=== PATIENT | male | born 1985 | race Caucasian/White ===

== ENCOUNTER 2016-06-06 09:42 | Emergency (ER) | payer MEDICAID, OTHER ==
[2016-06-06 09:51] VITALS: BP 131/80
[2016-06-06] MEDS ORDERED: IBUPROFEN 600 MG TABLET PO ONE (09:54)
[2016-06-06] MEDS ORDERED: ACETAMINOPHEN 325 MG TABLET PO ONE (09:57)
--- NOTE | 2016-06-06 10:56 | ER Document Report ---
ED Hand/Wrist Injury - General Chief Complaint: Wrist Injury Stated Complaint: WRIST PAIN Notes: The patient is a 30-year-old male who presents with left wrist pain after he fell yesterday. He is having pain over his left lateral wrist, especially when he flexes the wrist. He had a navicular fracture 15 years ago that was repaired with a screw. He cannot take anti-inflammatories because he has a history of gastric ulcers. He denies numbness, tingling, open wounds or decreased range of motion. TRAVEL OUTSIDE OF THE U.S. IN LAST 30 DAYS: No - Related Data Allergies/Adverse Reactions: shellfish derived Allergy (Verified 06/06/16 09:48) Sulfa (Sulfonamide Antibiotics) Adverse Reaction (Verified 06/06/16 09:48) Past Medical History - General Information source: Patient - Social History Smoking Status: Current Every Day Smoker Frequency of alcohol use: Occasional Drug Abuse: None Family History: Reviewed & Not Pertinent Patient has suicidal ideation: No Patient has homicidal ideation: No Renal/ Medical History: Denies: Hx Peritoneal Dialysis Review of Systems - Review of Systems Notes: REVIEW OF SYSTEMS: CONSTITUTIONAL: -fevers, -chills EENT: -eye pain, -difficulty swallowing, -nasal congestion CARDIOVASCULAR:-chest pain, -syncope. RESPIRATORY: -cough, -SOB GASTROINTESTINAL: -abdominal pain, - nausea, -vomiting, -diarrhea GENITOURINARY: -dysuria, -hematuria MUSCULOSKELETAL: +left wrist pain, -back pain, -neck pain SKIN: -rash or skin lesions. HEMATOLOGIC: -easy bruising or bleeding. LYMPHATIC: -swollen, enlarged glands. NEUROLOGICAL: -altered mental status or loss of consciousness, -headache, - neurologic symptoms PSYCHIATRIC: -anxiety, -depression. ALL OTHER SYSTEMS REVIEWED AND NEGATIVE. Physical Exam - Vital signs Vitals: Temp Pulse Resp BP Pulse Ox 98.9 F 87 16 131/80 H 100 06/06/16 09:49 06/06/16 09:49 06/06/16 09:49 06/06/16 09:49 06/06/16 09:49 - Notes Notes: PHYSICAL EXAMINATION: GENERAL: Well-appearing, well-nourished and in no acute distress. HEAD: Atraumatic, normocephalic. EYES: Pupils equal round and reactive to light, extraocular movements intact, sclera anicteric, conjunctiva are normal. ENT: nares patent, oropharynx clear without exudates. Moist mucous membranes. NECK: Normal range of motion, supple without lymphadenopathy LUNGS: Breath sounds clear to auscultation bilaterally and equal. No wheezes rales or rhonchi. HEART: Regular rate and rhythm without murmurs ABDOMEN: Soft, nontender, normoactive bowel sounds. No guarding, no rebound. No masses appreciated. EXTREMITIES: Mild tenderness over left lateral wrist, full left wrist range of motion, no snuffbox tenderness, brisk capillary refill, neurovascularly intact distally NEUROLOGICAL: Cranial nerves grossly intact. Normal speech, normal gait. Normal sensory, motor, and reflex exams. PSYCH: Normal mood, normal affect. SKIN: Warm, Dry, normal turgor, no rashes or lesions noted. Course - Re-evaluation Re-evalutation: Patient has no evidence of acute fractures on x-ray. No snuffbox tenderness to suggest scaphoid fracture. Instructed patient to continue ice packs and Tylenol , since he cannot take NSAIDs due to his multiple gastric ulcers. Will have him follow-up with his primary care physician Ortho as needed. - Vital Signs Vital signs: Temp Pulse Resp BP Pulse Ox 98.9 F 87 16 131/80 H 100 06/06/16 09:49 06/06/16 09:49 06/06/16 09:49 06/06/16 09:49 06/06/16 09:49 - Diagnostic Test Radiology reviewed: Image reviewed, Reports reviewed Radiology results interpreted by me: Left wrist x-ray: No acute changes, evidence of prior operation Discharge - Discharge Clinical Impression: Left wrist sprain Qualifiers: Encounter type: initial encounter Qualified Code(s): S63.502A - Unspecified sprain of left wrist, initial encounter Condition: Stable Disposition: HOME, SELF-CARE Additional Instructions: SPRAIN: Your injury is a sprain. A sprain results from stretching or tearing of the ligaments, usually from a twisting injury. The ligaments will require time and protection in order to heal properly. Many sprains are quite disabling and should be taken seriously. The usual initial treatment of sprains is cold packs, elevation, and rest of the injured area. Your physician has assessed the seriousness of your ligament injury, and has outlined a treatment plan. Understand that this treatment may change, depending on how you progress. If a re-examination was recommended, it is important that you follow up as instructed. Call the doctor any time if there is severe pain, numbness, or loss of function in the injured area. ICE & ELEVATION: Apply ice packs frequently against the painful area. Many different schedules are recommended, such as "20 minutes on, 20 minutes off" or "one hour ice, two hours rest." If you need to work, you may need to go longer between ice treatments. You should plan to have the area ice packed AT LEAST one- fourth of the time. The ice should be applied over the wrap, tape, or splint, or over a layer of cloth -- not directly against the skin. Some ice bags have a built-in cloth and can be put directly on the skin. Your injured part should be elevated as much as possible over the next 48 hours. Try to keep the injury above the level of the heart. Avoid use of the injured area. Elevation and rest will decrease the swelling. FOLLOW-UP CARE: If you have been referred to a physician for follow-up care, call the physician s office for an appointment as you were instructed or within the next two days. If you experience worsening or a significant change in your symptoms, notify the physician immediately or return to the Emergency Department at any time for re-evaluation. Referrals: PRINCE WILDER, DO [ACTIVE STAFF] - Follow up as needed
== END 2016-06-06 11:10 | disposition home or self-care (01) ==
LOC: ER 09:42
DX: S63.502A Unspecified sprain of left wrist, initial encounter (principal); W19.XXXA Unspecified fall, initial encounter; Y93.89 Activity, other specified; F17.200 Nicotine dependence, unspecified, uncomplicated; Z87.81 Personal history of (healed) traumatic fracture; Z98.890 Other specified postprocedural states; Z87.11 Personal history of peptic ulcer disease; Z91.013 Allergy to seafood
CPT/HCPCS: 99283; 73110; L3984

== ENCOUNTER 2016-11-06 17:12 | Emergency (ER) | payer SELFPAY ==
[2016-11-06] MEDS ORDERED: OXYCODONE-ACETAMINOPHEN 5-325 MG TABLET PO ONE (18:13)
[2016-11-06] MEDS ORDERED: PENICILLIN V POTASSIUM 500 MG TABLET PO ONE (18:13)
--- NOTE | 2016-11-06 18:15 | ER Document Report ---
HPI - HPI Patient complains to provider of: Dental pain Onset: Other - 2 days Onset/Duration: Persistent Quality of pain: Sharp Context: Patient presents complaining of dental pain from cavities to left upper jaw. Patient states he has had pain off and on for months but it got worse over the past 2 days. Patient denies any fever. Patient does complain of mild facial swelling. Associated Symptoms: Other - Dental pain. denies: Fever Exacerbated by: Denies Relieved by: Denies Similar symptoms previously: Yes Recently seen / treated by doctor: No - ROS ROS below otherwise negative: Yes Systems Reviewed and Negative: Yes All other systems reviewed and negative - CONSTITUTIONAL Constitutional: DENIES: Fever, Chills - EENT Notes: Dental pain - NEURO Neurology: DENIES: Weakness - RESPIRATORY Respiratory: DENIES: Coughing - GASTROINTESTINAL Gastrointestinal: DENIES: Nausea, Patient vomiting - MUSCULOSKELETAL Musculoskeletal: DENIES: Back Pain, Neck Pain - DERM Skin Color: Normal Skin Problems: None Past Medical History - General Information source: Patient - Social History Smoking Status: Current Every Day Smoker Frequency of alcohol use: Occasional Drug Abuse: None Occupation: None Lives with: Family Family History: Reviewed & Not Pertinent Renal/ Medical History: Denies: Hx Peritoneal Dialysis GI Medical History: Reports: Hx Gastroesophageal Reflux Disease Psychiatric Medical History: Reports: Hx Attention Deficit Hyperactivity Disorder Past Surgical History: Reports: Hx Herniorrhaphy, Hx Orthopedic Surgery Vertical Provider Document - CONSTITUTIONAL Agree With Documented VS: Yes Exam Limitations: No Limitations General Appearance: WD/WN, No Apparent Distress - INFECTION CONTROL TRAVEL OUTSIDE OF THE [place] IN LAST 30 DAYS: No - HEENT HEENT: Atraumatic, Normocephalic. negative: Pharyngeal Exudate, Pharyngeal Tenderness, Pharyngeal Erythema, Tympanic Membrane Red, Tympanic Membrane Bulging Mouth Diagram: 1 - Tenderness, dental decay, no trismus, no gingival abscess, no potential airway compromise - NECK Neck: Normal Inspection, Supple. negative: Lymphadenopathy-Left, Lymphadenopathy-Right - RESPIRATORY Respiratory: Breath Sounds Normal, No Respiratory Distress - CARDIOVASCULAR Cardiovascular: Regular Rate, Regular Rhythm, No Murmur - MUSCULOSKELETAL/EXTREMETIES Musculoskeletal/Extremeties: MAEW - NEURO Level of Consciousness: Awake, Alert, Appropriate Motor/Sensory: No Motor Deficit - DERM Integumentary: Warm, Dry Course - Re-evaluation Re-evalutation: 11/06/16 20:38 The patient has been informed that they may have pre-hypertension or hypertension based on a blood pressure reading in the emergency department. I recommend that patient call the primary care provider listed on their discharge instructions or a physician of their choice by this week to arrange follow-up for further evaluation of possible pre-hypertension or hypertension. Discharge - Discharge Clinical Impression: Toothache Condition: Stable Disposition: HOME, SELF-CARE Instructions: Dentist, Oral Narcotic Medication (OM), Penicillin V K ([facility]), Toothache ([facility]) Additional Instructions: Return immediately for any new or worsening symptoms Followup with your primary care provider, call tomorrow to make a followup appointment Follow-up with a dental care provider Prescriptions: Naproxen [Naprosyn 250 Nmg Tablet] 1 tab PO BID #14 tablet Oxycodone HCl/Acetaminophen [Percocet 5-325 mg Tablet] 1 tab PO ASDIR PRN #12 tablet PRN Reason: Penicillin V Potassium [Penicillin Vk 500 mg Tablet] 500 mg PO BID #20 tablet Referrals: [facility] [Provider Group] - Follow up as needed
[2016-11-06 18:47] VITALS: BP 151/85
== END 2016-11-06 18:51 | disposition home or self-care (01) ==
LOC: ER 17:12
DX: K02.9 Dental caries, unspecified (principal); K08.89 Other specified disorders of teeth and supporting structures; R22.0 Localized swelling, mass and lump, head; F17.200 Nicotine dependence, unspecified, uncomplicated
CPT/HCPCS: 99282

== ENCOUNTER 2017-02-26 09:21 | Emergency (ER) | payer SELFPAY ==
[2017-02-26] MEDS ORDERED: HALOPERIDOL 5 MG TABLET PO ONE (09:24)
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
[2017-02-26 09:44] LABS: ABSOLUTE EOSINOPHILS # (AUTO) 0.1 10^3/uL (0.0-0.6); ABSOLUTE LYMPHOCYTES (AUTO) 2.6 10^3/uL (0.5-4.7); ABSOLUTE MONOCYTES (AUTO) 0.9 10^3/uL (0.1-1.4); ABSOLUTE NEUT (AUTO) 7.8 10^3/uL (1.7-8.2); BASOPHILS % (AUTO) 0.4 % (0-2); EOSINOPHILS % (AUTO) 0.8 % (0-6); HEMATOCRIT 51.1 % (37.9-51.0); HEMOGLOBIN 17.7 g/dL (13.5-17.0); LYMPHOCYTES % (AUTO) 22.8 % (13-45); MEAN CORPUSCULAR HGB CONC 34.7 g/dL (32.0-36.0); MEAN CORPUSCULAR VOLUME 89 fl (80-97); MONOCYTES % (AUTO) 8.2 % (3-13); RED BLOOD COUNT 5.71 10^6/uL (4.35-5.55); RED CELL DISTRIBUTION WIDTH 12.7 % (11.5-14.0); SEGMENTED NEUTROPHILS % (AUTO) 67.8 % (42-78); WHITE BLOOD COUNT 11.5 10^3/uL (4.0-10.5)
[2017-02-26] MEDS ORDERED: LORAZEPAM INJ 2 MG/1 ML VIAL ONE (09:57)
[2017-02-26] MEDS ORDERED: KETAMINE HCL INJ 500 MG/10 ML VIAL IM ONE (10:01)
[2017-02-26 10:02] LABS: ALANINE AMINOTRANSFERASE 70 U/L (21-72); ALCOHOL < 10 mg/dL (NONE DETECTED); ALKALINE PHOSPHATASE 84 U/L (38-126); ANION GAP 15 (5-19); ASPARTATE AMINO TRANSFERASE 28 U/L (17-59); BILIRUBIN,DIRECT 0.3 mg/dL (0.0-0.4); BILIRUBIN,TOTAL 1.9 mg/dL (0.2-1.3); BLOOD UREA NITROGEN 8 mg/dL (7-20); CALCIUM 10.2 mg/dL (8.4-10.2); CARBON DIOXIDE 27 mmol/L (22-30); CHLORIDE 99 mmol/L (98-107); CREATININE RESULT 0.94 mg/dL (0.52-1.25); GLUCOSE 173 mg/dL (75-110); POTASSIUM 4.2 mmol/L (3.6-5.0); SODIUM 140.7 mmol/L (137-145); TOTAL PROTEIN 7.9 g/dL (6.3-8.2)
[2017-02-26] MEDS ORDERED: KETAMINE HCL INJ 500 MG/10 ML VIAL ONE (10:02)
[2017-02-26 10:24] LABS: APPEARANCE,URINE SLIGHTLY-CLOUDY; BILIRUBIN,URINE NEGATIVE (NEGATIVE); GLUCOSE, URINE NEGATIVE (NEGATIVE); KETONES,URINE NEGATIVE (NEGATIVE); LEUKOCYTE ESTERASE,URINE NEGATIVE (NEGATIVE); NITRITE,URINE NEGATIVE (NEGATIVE); PROTEIN,URINE 30 mg/dL (NEGATIVE); URINE SPECIFIC GRAVITY 1.021
[2017-02-26 10:41] LABS: URINE BARBITURATES SCREEN NEGATIVE; URINE METHADONE SCREEN NEGATIVE; URINE OPIATES LOW NEGATIVE; URINE PHENCYCLIDINE SCREEN NEGATIVE
[2017-02-26] MEDS ORDERED: NORMAL SALINE 1000 ML 1,000 ML IV ONE ×2 (10:41→16:08)
[2017-02-26] MEDS ORDERED: LORAZEPAM INJ 2 MG/1 ML VIAL IM ONE (11:17)
[2017-02-26] MEDS ORDERED: MIDAZOLAM 2 MG/2 ML INJ IM ONE (11:19)
[2017-02-26] MEDS ORDERED: MIDAZOLAM HCL INJ 5 MG/1 ML VIAL NASL ONE (11:20)
--- NOTE | 2017-02-26 12:46 | EKG REPORT ---
SEVERITY:- OTHERWISE NORMAL ECG - SINUS RHYTHM INCOMPLETE RIGHT BUNDLE BRANCH BLOCK BORDERLINE LEFT AXIS DEVIATION : Confirmed by: Cullen Lobo 26-Feb-2017 12:45:52
[2017-02-26] MEDS ORDERED: ZIPRASIDONE MESYLATE INJ/PF 20 MG SDV IM ONE (16:03)
[2017-02-26] MEDS ORDERED: BENZTROPINE MESYLATE 1 MG TABLET PO ONE (16:04)
[2017-02-26] MEDS ORDERED: CHLORPROMAZINE HCL 50 MG TABLET PO SCH (16:15)
[2017-02-26] MEDS: CHLORPROMAZINE HCL INJ 25 MG/1 ML AMPULE IM SCH (18:54)
[2017-02-26] MEDS: BENZTROPINE MESYLATE INJ 2 MG/2 ML AMPULE IM SCH (18:54)
[2017-02-27] MEDS: CHLORPROMAZINE HCL INJ 25 MG/1 ML AMPULE IM SCH ×4 (00:33→17:45)
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
[2017-02-27] MEDS ORDERED: ZIPRASIDONE MESYLATE INJ/PF 20 MG SDV IM ONE ×3 (08:50→15:22)
[2017-02-27] MEDS ORDERED: LORAZEPAM INJ 2 MG/1 ML VIAL ONE (09:08)
[2017-02-27] MEDS ORDERED: NORMAL SALINE 1000 ML 1,000 ML IV ONE ×2 (10:13→15:03)
[2017-02-27] MEDS: BENZTROPINE MESYLATE INJ 2 MG/2 ML AMPULE IM SCH ×2 (10:48→17:45)
[2017-02-27] MEDS ORDERED: LORAZEPAM INJ 2 MG/1 ML VIAL IV ONE ×2 (11:47→15:00)
--- NOTE | 2017-02-27 16:07 | RADIOLOGY REPORT (SQ) ---
EXAM DESCRIPTION: CT HEAD WITHOUT COMPLETED DATE/TIME: 02/27/2017 3:49 pm REASON FOR STUDY: aggression, personality changes, evaluate COMPARISON: None. TECHNIQUE: Axial images acquired through the brain without intravenous contrast. Images reviewed wi th bone, brain and subdural windows. Images stored on PACS. All CT scanners at this facility use dose modulation, iterative reconstruction, and/or weight based d osing when appropriate to reduce radiation dose to as low as reasonably achievable (ALARA). [facility]: Dose Right [facility]: CareDose [facility]: Dose Right [facility]: Teradose 4D [facility]: Smart Dasher RADIATION DOSE: CT Rad equipment meets quality standard of care and radiation dose reduction techniq ues were employed. CTDIvol: 64.6 mGy. DLP: 1163 mGy-cm. mGy. LIMITATIONS: None. FINDINGS: VENTRICLES: Normal size and contour. CEREBRUM: No masses. No hemorrhage. No midline shift. No evidence for acute infarction. Normal gra y/white matter differentiation. No areas of low density in the white matter. CEREBELLUM: No masses. No hemorrhage. No alteration of density. No evidence for acute infarction. EXTRAAXIAL SPACES: No fluid collections. No masses. ORBITS AND GLOBE: No intra- or extraconal masses. Normal contour of globe without masses. CALVARIUM: No fracture. PARANASAL SINUSES: There is a mucous retention cyst in the left maxillary sinus. SOFT TISSUES: No mass or hematoma. OTHER: No other significant finding. IMPRESSION: Left maxillary sinus disease with no acute intracranial findings. EVIDENCE OF ACUTE STROKE: NO. COMMENT: Quality ID # [id number]: Final reports with documentation of one or more dose reduction techniques (e.g., Automated exposure control, adjustment of the mA and/or kV according to patient size, use of iterative reconstruction technique) TECHNICAL DOCUMENTATION: JOB ID: [id number] [employer]- All Rights Reserved
[2017-02-27] MEDS ORDERED: LIDOCAINE 2% URO-JET 5 ML KIT MM ONE (18:39)
[2017-02-27 19:19] LABS: ABSOLUTE BASOPHILS # (AUTO) 0.1 10^3/uL (0.0-0.2); ABSOLUTE EOSINOPHILS # (AUTO) 0.1 10^3/uL (0.0-0.6); ABSOLUTE LYMPHOCYTES (AUTO) 2.3 10^3/uL (0.5-4.7); ABSOLUTE MONOCYTES (AUTO) 0.7 10^3/uL (0.1-1.4); ABSOLUTE NEUT (AUTO) 5.7 10^3/uL (1.7-8.2); APPEARANCE,URINE CLEAR; BASOPHILS % (AUTO) 0.8 % (0-2); BILIRUBIN,URINE NEGATIVE (NEGATIVE); EOSINOPHILS % (AUTO) 1.5 % (0-6); GLUCOSE, URINE NEGATIVE (NEGATIVE); HEMATOCRIT 42.1 % (37.9-51.0); HGB HCT DIFFERENCE 2.3; KETONES,URINE NEGATIVE (NEGATIVE); LEUKOCYTE ESTERASE,URINE NEGATIVE (NEGATIVE); LYMPHOCYTES % (AUTO) 25.5 % (13-45); MEAN CORPUSCULAR HEMOGLOBIN 31.4 pg (27.0-33.4); MEAN CORPUSCULAR HGB CONC 35.2 g/dL (32.0-36.0); MEAN CORPUSCULAR VOLUME 89 fl (80-97); MONOCYTES % (AUTO) 7.8 % (3-13); NITRITE,URINE NEGATIVE (NEGATIVE); PROTEIN,URINE NEGATIVE (NEGATIVE); RED BLOOD COUNT 4.72 10^6/uL (4.35-5.55); RED CELL DISTRIBUTION WIDTH 12.6 % (11.5-14.0); SEGMENTED NEUTROPHILS % (AUTO) 64.4 % (42-78); URINE SPECIFIC GRAVITY 1.011; UROBILINOGEN,URINE NEGATIVE mg/dL (<2.0); WHITE BLOOD COUNT 8.9 10^3/uL (4.0-10.5)
[2017-02-27 19:21] LABS: HEMOGLOBIN 14.8 g/dL (13.5-17.0)
[2017-02-27 19:35] LABS: ALANINE AMINOTRANSFERASE 68 U/L (21-72); ALBUMIN 3.4 g/dL (3.5-5.0); ALKALINE PHOSPHATASE 60 U/L (38-126); ANION GAP 7 (5-19); ASPARTATE AMINO TRANSFERASE 40 U/L (17-59); BILIRUBIN,DIRECT 0.2 mg/dL (0.0-0.4); BILIRUBIN,TOTAL 1.5 mg/dL (0.2-1.3); BLOOD UREA NITROGEN 9 mg/dL (7-20); CALCIUM 8.6 mg/dL (8.4-10.2); CARBON DIOXIDE 23 mmol/L (22-30); CHLORIDE 109 mmol/L (98-107); CREATINE KINASE 784 U/L (55-170); CREATININE RESULT 0.81 mg/dL (0.52-1.25); GLUCOSE 102 mg/dL (75-110); SODIUM 138.7 mmol/L (137-145); TOTAL PROTEIN 5.6 g/dL (6.3-8.2)
[2017-02-27 19:38] LABS: POTASSIUM 3.8 mmol/L (3.6-5.0)
--- NOTE | 2017-02-27 20:12 | ER Document Report ---
Doctor's Note Notes: 02/27/17 20:11 Evening ED Coverage: Nurse reported to me that patient has had no urine output since 8:00 this morning. Patient has had prolonged restraints as well as multiple medications that could cause urinary retention as well. Laboratory studies will be ordered and Brooks placed to evaluate for retention.
[2017-02-28] MEDS: CHLORPROMAZINE HCL INJ 25 MG/1 ML AMPULE IM SCH (00:39)
[2017-02-28] MEDS ORDERED: NORMAL SALINE 1000 ML 1,000 ML IV ONE (01:55)
[2017-02-28] MEDS ORDERED: ENOXAPARIN SODIUM INJ 40 MG/0.4 ML DISP.SYRIN SUBCUT SCH ×2 (10:00)
[2017-02-28] MEDS: BENZTROPINE MESYLATE INJ 2 MG/2 ML AMPULE IM SCH (10:40)
[2017-02-28 11:50] LABS: ALANINE AMINOTRANSFERASE 63 U/L (21-72); ALBUMIN 3.6 g/dL (3.5-5.0); ALKALINE PHOSPHATASE 69 U/L (38-126); ANION GAP 11 (5-19); ASPARTATE AMINO TRANSFERASE 45 U/L (17-59); BILIRUBIN,DIRECT 0.4 mg/dL (0.0-0.4); BLOOD UREA NITROGEN 7 mg/dL (7-20); CALCIUM 8.9 mg/dL (8.4-10.2); CARBON DIOXIDE 23 mmol/L (22-30); CHLORIDE 105 mmol/L (98-107); CREATINE KINASE 1131 U/L (55-170); CREATININE RESULT 0.87 mg/dL (0.52-1.25); GLUCOSE 120 mg/dL (75-110); POTASSIUM 4.1 mmol/L (3.6-5.0); SODIUM 139.2 mmol/L (137-145); TOTAL PROTEIN 5.8 g/dL (6.3-8.2)
[2017-02-28 11:58] VITALS: BP 131/68
[2017-02-28 12:29] LABS: APPEARANCE,URINE CLEAR; BILIRUBIN,URINE NEGATIVE (NEGATIVE); GLUCOSE, URINE NEGATIVE (NEGATIVE); KETONES,URINE NEGATIVE (NEGATIVE); LEUKOCYTE ESTERASE,URINE NEGATIVE (NEGATIVE); NITRITE,URINE NEGATIVE (NEGATIVE); PROTEIN,URINE NEGATIVE (NEGATIVE); URINE SPECIFIC GRAVITY 1.004
--- NOTE | 2017-02-28 14:36 | ER Document Report ---
Doctor's Note Notes: 02/28/17 12:36 Medically stable for transport to psychiatric facility
--- NOTE | 2017-02-28 20:36 | PSYCHOLOGICAL NOTE ---
Psych Note - Psych Note Psych Note: Patient is a 31 year old male in the ED on IVC for psychosis, bizarre behavior, and combativeness. Patient Meter Installer identified patient was awake. He was still in 4 point restraints. He was easily aroused. He stated he recalled this clinician coming with another staff and encouraging him to take PO medication yesterday. He knew he was at [facility]. He was able to alert of need (dry mouth, thirsty). Patient's response to being informed of IVC was that he was with [facility] because his mother was in [facility]it[facility]. Let him know his mother was not in Penitentiary and that her and his step sister had been at the ED yesterday to ensure he was okay and provide information. At that point there was a change of facial expression and a look in his eyes which indicated he did not believe this clinician and he became guarded yet still minimally interactive. His main concern was his dry mouth. Patient also recognized a staff member (he initiated recognition not staff) who he went to high school with. He was removed from restraints. Per staff report his paranoia took over, he became more guarded, and he wanted to leave.He was not easily redirected though stayed in his room. Due to yesterday's incident security and [employer] on stand by. 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 No medications (Haldol PO, Ativan IM, Ketamine IM , Nasal Versed, Thorazine IM, Geodon IM) seem to be managing the psychosis. For this reason it appears the psychosis is substance induced. Also given patient per family and medical staff who have known patient for some time he had no previous psychosis. Making an emergent referral to [facility]. Consulted with Dr. Cruz regarding the management and care of patient. ED Physician in agreement with recommendation.
--- NOTE | 2017-03-01 20:53 | PSYCHOLOGICAL NOTE ---
Psych Note - Psych Note Psych Note: Met with Patient who was laying calmly and cooperatively in his bed, yet was in mechanical restraints. He agreed to talk with this clinician about his history. Patient reported he began hearing voices and "seeing things behind his eyelids" approximately one year ago after his made chicken marsala. He reported he filed for separation and shortly thereafter he was admitted to a [facility] for 48 hours because of his bizarre behavior. Patient reported he is currently going through a divorce and his and two children moved to [place]. Patient reported he last saw his children a few weeks ago. Information regarding his drug history revealed he obtains oxycodone from friends frequently as well as adderall from his provider. He reported he overuses his adderall. He denied use of any illegal drugs but he was very guarded while presenting this information. When asked about whether his girlfriend misused any prescription drugs or illegal drugs, Patient became restless in the bed and started to complain of significant pain. He became easily agitated and uncooperative. It was obvious he was not being honest regarding his drug use, no longer wanted to engage in the conversation, and immediately began drug seeking. Patient denied taking any acid, bath salts, or other substances that would cause him to experience psychosis or "super human strength" as described by others involved with Patient during his violent outburst. 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 He reported graduating college with a BS in Geology.. he denied any legal history but then went on to say he had gotten into trouble for past child support issues. Patient was alert and oriented to person, place, time, and circumstance. Mood was initially cooperative but then became agitated and uncooperative once questioned about his drug history. He denied suicidal / homicidal ideation, intent, or plan, or a history of the same. He denied current auditory / visual hallucinations and no delusions were noted. Thought processes were mostly organized and linear, and rational. Conversational speech was within normal limits for rate, tone, and prosody. Intellectual abilities were estimated within the average range. Attention and concentration were fair. Insight, judgment, and impulse control were poor. 1. Substance Induced Psychotic Disorder, Probable Bath Salts Impression / Plan: Patent is recommended to remain under IVC at this time. Continued Emergency Placement Transfer is still in effect given his quick level of agitation and level of violence. Patient is suspected to have taken bath salts or something similar given his positive toxicology screen for amphetamines and benzodiazepines, and instance of "super human strength." Patient was accepted at [facility] and will be transported later this morning.
== END 2017-02-28 12:25 ==
LOC: ER 09:21
DX: F29 Unspecified psychosis not due to a substance or known physiological condition (principal); F15.99 Other stimulant use, unspecified with unspecified stimulant-induced disorder; F13.99 Sedative, hypnotic or anxiolytic use, unspecified with unspecified sedative, hypnotic or anxiolytic-induced disorder; Z78.1 Physical restraint status; Z88.2 Allergy status to sulfonamides; Z91.013 Allergy to seafood
CPT/HCPCS: 93005; 96376; 99291; 99292; 96372; 96361; 51702; 96374; 36415; 82962; 80307 ×4; 82550; 85025; 80053; 81001; 93010; J0515 ×3; J3230 ×3; J3490 ×3; J1650; J2060 ×2; J3486 ×2; J7030 ×3